=== PATIENT | male | born 1995 | race African-American/Black ===

== ENCOUNTER 2018-02-17 17:45 | Inpatient (IN) | payer SELFPAY ==
[~2018-02-17] VITALS: Ht 180.3 cm; Wt 76.4 kg
[2018-02-17 11:00] VITALS: BP 112/67
--- NOTE | 2018-02-17 17:50 | NUR ---
BIB FRIEND C/O L EYE SWELLING AND PURULENT DISCHARGE X 2 DAYS. SENT FROM URGENT CARE, DENIES TRAUMA. A/OX 4, BREATHING EVEN AND UNLABORED. NO SOB, NAD, VITALS STABLE. SAFETY AND COMFORT MEASURES IN PLACE. AWAITING MD ORDERS.
[2018-02-17] MEDS ORDERED: TETRACAINE HCL/PF 0.5% UD 2 ML BOTTLE ONE (18:11)
[2018-02-17] MEDS ORDERED: FLUORESCEIN SODIUM OPHTH 1 EA STRIP ONE (18:11)
--- NOTE | 2018-02-17 18:25 | NUR ---
NEW IV STARTED ON RFA, 18G. BLOOD DRAWN AND SENT TO LAB.
[2018-02-17] MEDS ORDERED: TONO PEN in ED SUPPLY ONICELL 1 EA MC ONE (18:30)
[2018-02-17] MEDS ORDERED: IV NS 0.9% 1,000 ML BAG IV ONE (18:30)
[2018-02-17] MEDS ORDERED: ONDANSETRON HCL/PF 4 MG/2 ML VIAL IVP ONE (18:30)
[2018-02-17] MEDS ORDERED: CEFTRIAXONE 1 G VIAL IM ONE (18:30)
[2018-02-17] MEDS ORDERED: MORPHINE SULFATE INJ 2 MG/ML DISP.SYRIN IV ONE (18:30)
[2018-02-17] MEDS ORDERED: FLUORESCEIN SODIUM OPHTH 1 EA STRIP OP ONE (18:30)
[2018-02-17] MEDS ORDERED: TETRACAINE HCL/PF 0.5% UD 2 ML BOTTLE LEFTEYE ONE (18:30)
[2018-02-17 18:31] LABS: BASOPHILS % (AUTO) 0.2 % (0.0-2.0); EOSINOPHILS % (AUTO) 5.4 % (0.0-6.0); HEMATOCRIT 38 % (39-51); HEMOGLOBIN 12.8 g/dL (13.5-17.5); LYMPHOCYTES # (AUTO) 0.9 /CMM (0.8-4.8); LYMPHOCYTES % (AUTO) 13.6 % (20.0-44.0); MEAN CORPUSCULAR HEMOGLOBIN 27 PG (26.0-33.0); MEAN CORPUSCULAR HGB CONC 33 g/dl (31.0-36.0); MEAN CORPUSCULAR VOLUME 81 fL (80-96); MONOCYTES # (AUTO) 1.1 /CMM (0.1-1.30); MONOCYTES % (AUTO) 16.6 % (2.0-12.0); NEUTROPHILS # (AUTO) 4.2 /CMM (1.8-8.9); NEUTROPHILS % (AUTO) 64.2 % (43.0-81.0); PLATELET COUNT (AUTO) 381 /CMM (150-450); RDW COEFFICIENT OF VARIATION 12.5 (11.5-15.0); RED BLOOD CELL COUNT(AUTO) 4.75 MIL/uL (4.5-6.0); WHITE BLOOD COUNT (AUTO) 6.6 K/uL (4.3-11.0)
[2018-02-17] MEDS ORDERED: ONDANSETRON HCL/PF 4 MG/2 ML VIAL ONE (18:31)
[2018-02-17] MEDS ORDERED: MORPHINE SULFATE INJ 4 MG/ML DISP.SYRIN ONE (18:31)
--- NOTE | 2018-02-17 18:40 | NUR ---
AT BEDSIDE FOR EVAL.
[2018-02-17 18:45] LABS: ALBUMIN 3.3 g/dL (3.4-5.0); BILIRUBIN,DIRECT 0.1 mg/dL (0.0-0.2); BILIRUBIN,TOTAL 0.3 mg/dL (0.2-1.0); CALCIUM, SERUM 8.9 mg/dL (8.5-10.1); CREATININE 0.9 mg/dL (0.6-1.3); TOTAL PROTEIN, SERUM 8.4 g/dL (6.4-8.2)
[2018-02-17 18:48] LABS: POTASSIUM 3.1 mmol/L (3.5-5.1)
[2018-02-17] MEDS ORDERED: AZITHROMYCIN 250 MG TABLET PO ONE (19:00)
[2018-02-17] MEDS ORDERED: CEFTRIAXONE 1GM BAG (ER ONLY) 1 GM/50 ML PIGGYBACK IV ONE ×2 (19:00)
[2018-02-17] MEDS ORDERED: CEFTRIAXONE 2 G in IV D5W 100 ML IV ONE (19:00)
[2018-02-17] MEDS ORDERED: VANCOMYCIN 1 GM in IV D5W 250 ML IV ONE (19:00)
--- NOTE | 2018-02-17 19:05 | NUR ---
REPORT GIVEN TO WALT TOWNSEND FOR NE.
[2018-02-17] MEDS ORDERED: AZITHROMYCIN 250 MG TABLET ONE (19:17)
[2018-02-17] MEDS ORDERED: IV NS 0.9% 250 ML IV ONE (19:25)
[2018-02-17] MEDS ORDERED: CT SWABBABLE VALVE TRANS SET 1 EA INFUS.SET MC ONE (19:25)
[2018-02-17] MEDS ORDERED: IOHEXOL-300 100 ML VIAL IV ONE (19:25)
--- NOTE | 2018-02-17 19:26 | NUR ---
PT LAYING SUPINE IN BED STABLE CONDITION. NAD. VSS. STABLE CONDITION. WILL CONTINUE TO MONITOR.
[2018-02-17] MEDS ORDERED: POTASSIUM CHLORIDE 20 MEQ TAB.PRT.SR PO ONE ×2 (19:50→20:00)
--- NOTE | 2018-02-17 19:52 | NUR ---
PT BROUGHT BY RADIOLOGY FOR CT
--- NOTE | 2018-02-17 20:52 | NUR ---
URINE COLLECTED. CALLED LAB FOR DIRECTOR OF RESTAURANT
[2018-02-17] MEDS ORDERED: MOXIFLOXACIN OPTH 3 ML BOTTLE LEFTEYE SCH (21:30)
[2018-02-17] MEDS ORDERED: TOBRAMYCIN/DEXAMETH OPHTH DORPS 2.5 ML BOTTLE LEFTEYE SCH (21:30)
[2018-02-17] MEDS ORDERED: TOBRAMYCIN/DEXAMETH OPHTH DORPS 2.5 ML BOTTLE ONE (21:57)
--- NOTE | 2018-02-17 22:12 | NUR ---
PT IS ASSIGNED TO MED SURG RM#: [id number], DX: PRESEPTAL CELLULITIS, AND ACCEPTING MD: DR WRIGHT
[2018-02-17] MEDS ORDERED: HYDROCODONE/APAP 5/325MG 1 EACH TABLET PO PRN (22:30)
[2018-02-17] MEDS ORDERED: ACETAMINOPHEN 325 MG TABLET PO PRN (22:30)
[2018-02-17] MEDS ORDERED: ONDANSETRON HCL/PF 4 MG/2 ML VIAL IVP PRN (22:30)
--- NOTE | 2018-02-17 22:30 | NUR ---
REPORT GIVEN TO DELBERT TOWNSEND FOR NE
--- NOTE | 2018-02-17 23:00 | NUR ---
MS SENIOR PROCESS ENGINEER NOTES Patient came to unit via josep, friend at bedside. Patient alert, oriented x 4. Breathing even and unlabored. Not in any distress. IV site on Right AC g#18, intact and patent. No signs of swelling or infiltration. Swelling on left eye noted, with purulent discharge. Cleansed with NS, patted dry, covered with gauze and reinforced with paper tape. As per patient, he has that for 2 days. Picture taken and placed in chart. Body assessment done, no skin issues. According to patient, he takes Genvoya medication at home. Dr. Tucker informed. Oriented to call patrick. Safety measures in place. Call patrick within easy reach. Bed in low, locked position. Will monitor accordingly
--- NOTE | 2018-02-17 23:15 | NUR ---
PT TRANSPORTED WITH STABLE CONDITION. NAD. ARMENTA.
[2018-02-17] MEDS ORDERED: PIPERACILLIN /TAZOBACTAM 3.375 G VIAL IV ONE (23:31)
[2018-02-17] MEDS: PIPERACILLIN /TAZOBACTAM 3.375 G in IV D5W 50 ML IV SCH (23:47)
[2018-02-18] MEDS ORDERED: ELVI1TAB3 PO (00:18)
[2018-02-18] MEDS ORDERED: IV PREMIX 0.45% NS + KCL 1,000 ML IV ONE (00:29)
[2018-02-18] MEDS ORDERED: PIPERACILLIN /TAZOBACTAM 3.375 G VIAL IV ONE (05:34)
[2018-02-18] MEDS: PIPERACILLIN /TAZOBACTAM 3.375 G in IV D5W 50 ML IV SCH ×4 (05:45→23:51)
--- NOTE | 2018-02-18 06:35 | NUR ---
RN CLOSING NOTES Patient still sleeping in bed, easily arousable. Not in any distress. Peripheral IV of Potassium Chloride in 1/2 NS infusing at 80mL/hr. Patient remains stable. Safety measures in place. All needs attended to. All due medications given as ordered. Will endorse NE to oncoming RN.
[2018-02-18] MEDS ORDERED: FEE PK DOSING 1 MIN EA MC ONE (07:59)
[2018-02-18 08:00] VITALS: BP 116/75
--- NOTE | 2018-02-18 08:30 | NUR ---
RN OPENING NOTES RECEIVED PT. PT IS STABLE AND RESTING IN BED. NO S/S OF RESP DISTRESS/SOB. C/O MILD PAIN AT LEFT EYE 3/10, TOLERABLE. IPER PHARMACY REQUEST, OPTHALMIC MEDICATIONS X 2 TO BE CLARIFIED BY MD AND RE ORDERED. SAFETY MEASURES IN PLACE, CALL LIGHT WITHIN REACH. WILL CONTINUE TO MONITOR.
[2018-02-18] MEDS: VANCOMYCIN 1.25 GM in IV D5W 500 ML IV SCH ×2 (08:59→15:35)
[2018-02-18] MEDS: TOBRAMYCIN/DEXAMETH OPHTH DORPS 2.5 ML BOTTLE LEFTEYE SCH ×3 (09:30→17:59)
[2018-02-18] MEDS ORDERED: CIPROFLOXACIN HCL 0.3% 5 ML BOTTLE LEFTEYE SCH (10:00)
[2018-02-18 10:55] VITALS: BP 116/75
[2018-02-18] MEDS ORDERED: CIPROFLOXACIN HCL 0.3% 5 ML BOTTLE OP ONE (11:37)
[2018-02-18] MEDS: [UNRECOGNIZED DRUG - OTHER] LEFTEYE SCH ×6 (11:55→22:07)
[2018-02-18 15:48] VITALS: BP 119/69
--- NOTE | 2018-02-18 18:49 | NUR ---
RN CLOSING NOTE PT IN BED SLEEPING. NO S/S OF RESP DISTRESS OR SOB. NO C/O PAIN. PT HAS RECEIVED FREQUENT OPTHALMIC ABX DROPS THROUGHOUT THE DAY. IV ABX (VANCO/ZOSYN) RAN PER ORDER. SAFETY MEASURES IN PLACE, CALL LIGHT WITHIN REACH. WILL ENDORSE TO PACKAGE CLERK FOR NE.
[2018-02-18 20:11] VITALS: BP 111/56
[2018-02-19] MEDS: [UNRECOGNIZED DRUG - OTHER] LEFTEYE SCH ×2 (00:02→02:29)
[2018-02-19] MEDS: TOBRAMYCIN/DEXAMETH OPHTH DORPS 2.5 ML BOTTLE LEFTEYE SCH ×4 (00:04→18:24)
[2018-02-19] MEDS: VANCOMYCIN 1.25 GM in IV D5W 500 ML IV SCH ×3 (00:45→15:57)
[2018-02-19] MEDS: PIPERACILLIN /TAZOBACTAM 3.375 G in IV D5W 50 ML IV SCH ×4 (05:55→23:45)
[2018-02-19 07:35] LABS: CALCIUM, SERUM 8.5 mg/dL (8.5-10.1); CREATININE 1.1 mg/dL (0.6-1.3); POTASSIUM 4.1 mmol/L (3.5-5.1)
--- NOTE | 2018-02-19 07:51 | NUR ---
RN OPENING NOTES RECEIVED PT. IN BED, A&OX4. BREATHING UNLABORED ON ROOM AIR. NO S/S OF ACUTE PAIN. PT. DENIES PAIN. IV FLUIDS RUNNING AT 80 ML/HR. BED IS IN LOWEST, AND LOCKED POSITION. 2 SIDE RAILS UP, AND INSTRUCTED PT. TO USE CALL LIGHT FOR ASSISTANCE. ALL NEEDS MET. WILL CONTINUE TO ASSESS AND MONITOR.
[2018-02-19 08:00] VITALS: BP 110/57
[2018-02-19] MEDS: GATIFLOXACIN 0.5% LEFTEYE SCH ×4 (09:09→22:00)
--- NOTE | 2018-02-19 11:26 | NUR ---
ASKED PT. ABOUT HIS HOME MEDICATION GENVOYA. PT. SAID HE DOES NOT HAVE IT WITH HIM, BUT CAN ASK SOMEONE TO BRING IT IN FOR HIM.
[2018-02-19 16:00] VITALS: BP 101/68
--- NOTE | 2018-02-19 19:17 | NUR ---
RN CLOSING NOTES PT. IN BED, A&OX4, SLEEPING. BREATHING UNLABORED ON ROOM AIR. NO S/S OF ACUTE PAIN. PT. DENIES PAIN. IV ANTIBIOTICS RUNNING. BED IS IN LOWEST, AND LOCKED POSITION. 2 SIDE RAILS UP, AND INSTRUCTED PT. TO USE CALL LIGHT FOR ASSISTANCE. ALL NEEDS MET. WILL ENDORSE REPORT.
--- NOTE | 2018-02-19 19:20 | NUR ---
MS/RN NOTES RECEIVED PT. LYING IN BED. PT. IS AWAKE, ALERT AND ORIENTED X4. BREATHING EVEN AND UNLABORED ON ROOM AIR. NO SOB, RESPIRATORY DISTRESS OR COMPLAINTS OF PAIN NOTED AT THIS TIME. PT. WITH RIGHT HAND 22 GAUGE PERIPHERAL IV PRESENT, PATENT AND INTACT ADMINISTERING TO PT. 1/2 NS WITH 20 MEQ KCL @ 80ML/HR. BED LOCKED AND IN LOWEST POSITION, CALL LIGHT WITHIN REACH, WILL CONTINUE TO MONITOR.
[2018-02-19 20:00] VITALS: BP 127/74
[2018-02-20] MEDS: TOBRAMYCIN/DEXAMETH OPHTH DORPS 2.5 ML BOTTLE LEFTEYE SCH ×3 (00:20→12:14)
[2018-02-20] MEDS: VANCOMYCIN 1.25 GM in IV D5W 500 ML IV SCH ×2 (00:55→09:09)
[2018-02-20] MEDS: PIPERACILLIN /TAZOBACTAM 3.375 G in IV D5W 50 ML IV SCH ×2 (05:29→12:17)
--- NOTE | 2018-02-20 06:37 | NUR ---
MS/RN NOTES PT. IS LYING IN BED RESTING. BREATHING EVEN AND UNLABORED ON ROOM AIR. NO SOB, RESPIRATORY DISTRESS OR COMPLAINTS OF PAIN NOTED AT THIS TIME AND THROUGHOUT SHIFT. PT. WITH RIGHT HAND 22 GAUGE PERIPHERAL IV PRESENT, PATENT AND INTACT ADMINISTERING TO PT. 1/2 NS WITH 20 MEQ KCL @ 80ML/HR. ALL PT. NEEDS MET. BED LOCKED AND IN LOWEST POSITION, CALL LIGHT WITHIN REACH, WILL ENDORSE TO DAYSHIFT NURSE FOR CONTINUITY OF CARE.
[2018-02-20 06:51] LABS: CALCIUM, SERUM 8.7 mg/dL (8.5-10.1); CREATININE 0.9 mg/dL (0.6-1.3); POTASSIUM 4.3 mmol/L (3.5-5.1)
[2018-02-20] MEDS ORDERED: CIPROFLOXACIN HCL 0.3% 5 ML BOTTLE LEFTEYE SCH (07:35)
[2018-02-20 08:00] VITALS: BP 111/67
--- NOTE | 2018-02-20 08:00 | NUR ---
RN NOTES RECEIVED PATIENT IN THE BED A/O X3/4. ATIENT STABLE NOO ACUTE RESPIRATORY DISTRESS, V/S STABLE. REDNESS ON LEFT EYES. SCHEDULED MEDICATION ADMINISTERED. PATIENT REFUSED PAIN AT THIS TIME. INFUSING 1/2 NS AT 20MEQ KCL AT 80 ML/HE INTACT ON RIGHT HAND. PATIENT USING BATHROOM. SAFETY PRECAUTION MAINTAINED ALL THE TIME. NEEDS ATTENDED AND ANTICIPATED. CALL LIGHT WITHIN TO REACH. CONTINUED MONITORING.
[2018-02-20] MEDS ORDERED: GENVOYA PO SCH (09:00)
[2018-02-20] MEDS: GATIFLOXACIN 0.5% LEFTEYE SCH ×2 (09:13→12:17)
--- NOTE | 2018-02-20 10:00 | NUR ---
RN NOTES PATIENT STABLE RESTING IN THE BED. NO ACUTE RESPIRATORY DISTRESS. PATIENT GOING TO D/C HOME.
[2018-02-20] MEDS ORDERED: TOBR2.5D LEFTEYE (11:09)
[2018-02-20] MEDS ORDERED: SULF1TAB48 PO (11:09)
[2018-02-20] MEDS ORDERED: GATI2.5D LEFTEYE (13:26)
--- NOTE | 2018-02-20 15:00 | NUR ---
DISCHARGE NOTES PATIENT STABLE GOING TO D/C HOME. PATIENT MED COMPLIANT. V/S STALE, NO COMPLAINING OF PAIN. MED RECONCILIATION AND DISCHARGE ORDER REVIEWED AND EXPLAINED TO PATIENT . PATIENT VERBALIZED UNDERSTANDING. BELONGING WITH THE PATIENT. PATIENT WILL FOLLOW PRIMARY INDUSTRIAL GAS FITTER, TAKE MEDICATION PRESCRIBED. PRESCRIPTION HANDED TO THE PATIENT. ESCORTED PATIENT TO THE LOBBY FOR SAFETY. PATIENT GROUND WATER CONTRACTOR BY FRIEND NAME SRINATH PHONE #[phone].
== END 2018-02-20 15:07 | disposition home or self-care (01) | DRG 603 ==
LOC: ER 17:46 → MED 22:37
PROVIDERS: ADMIT Internal Medicine; ATTEND Internal Medicine
DX: L03.213 Periorbital cellulitis (principal); H10.9 Unspecified conjunctivitis; E87.6 Hypokalemia; H10.89 Other conjunctivitis; H01.006 Unspecified blepharitis left eye, unspecified eyelid; D64.9 Anemia, unspecified
CPT/HCPCS: 36415; 70481-TC; 80048-TC; 80076-TC; 80202-TC; 85025-TC; 87040-TC; 87070-TC; 87081-TC; 87186-TC; 87491; 87591; A4606; A6402; J0696; J2270; J2405; J2543; J3370; J3480; J3490; J7030; J7050; J7060; Q9967; Z7610

== ENCOUNTER 2018-11-05 08:58 | Inpatient (IN) | payer BC, MEDICAID ==
[~2018-11-05] VITALS: Ht 180.3 cm; Wt 76.2 kg
[~2018-11-05 08:58] MED LIST: ELVI1TAB3 PO; GATI2.5D LEFTEYE; SULF1TAB48 PO; TOBR2.5D LEFTEYE
--- NOTE | 2018-11-05 09:17 | NUR ---
BIBSELF FROM HOME. AAOX4. NO SOB. AMBULATORY. C/O HEADACHE ON THE FRONTAL AREA, NON PRODUCTIVE COUGH AND CONGESTION SINCE YESTERDAY. DENIES CP. -N/V/D. AFEBRILE. PT REPORTED TAKING IBUPROPHEN AT 4:30AM. TO ER BED 2. AWAITING MD FOR EVAL AND ORDERS.
--- NOTE | 2018-11-05 09:30 | NUR ---
PT REPORTS THE HE IS HIV POSITIVE
[2018-11-05] MEDS ORDERED: CEFTRIAXONE 1GM BAG (ER ONLY) 50 ML IV ONE ×2 (09:48→10:00)
--- NOTE | 2018-11-05 09:50 | NUR ---
IV LINE OBTAINED ON L AC 18G. BLOOD DRAWN GIVEN TO OXYGEN THERAPY TEACHER AT BEDSIDE. EKG BEING DONE.
[2018-11-05] MEDS ORDERED: VANCOMYCIN 1 GM in IV D5W 250 ML IV ONE (10:00)
[2018-11-05] MEDS ORDERED: IV NS 0.9% 1,000 ML BAG IV ONE (10:00)
--- NOTE | 2018-11-05 10:00 | NUR ---
PT BEING WHEELED TO CT ON [facility]. MASK IS PLACED ON PT FOR TRANSPORT
[2018-11-05 10:05] LABS: BASOPHILS % (AUTO) 0.1 % (0.0-2.0); HEMATOCRIT 44 % (39-51); HEMOGLOBIN 14.9 g/dL (13.5-17.5); LYMPHOCYTES % (AUTO) 9.4 % (20.0-44.0); MEAN CORPUSCULAR HGB CONC 34 g/dl (31.0-36.0); MEAN CORPUSCULAR VOLUME 82 fL (80-96); MONOCYTES % (AUTO) 9.9 % (2.0-12.0); NEUTROPHILS # (AUTO) 7.4 /CMM (1.8-8.9); NEUTROPHILS % (AUTO) 71.6 % (43.0-81.0); PLATELET COUNT (AUTO) 282 /CMM (150-450); RED BLOOD CELL COUNT(AUTO) 5.39 MIL/uL (4.5-6.0); WHITE BLOOD COUNT (AUTO) 10.3 K/uL (4.3-11.0)
[2018-11-05 10:08] LABS: CALCIUM, SERUM 8.9 mg/dL (8.5-10.1); CARBON DIOXIDE 28 mmol/L (21-32); CHLORIDE 100 mmol/L (98-107); CREATININE 0.8 mg/dL (0.6-1.3); GLUCOSE 116 mg/dL (74-106); POTASSIUM 3.7 mmol/L (3.5-5.1); SODIUM SERUM 134 mmol/L (136-145); UREA NITROGEN, BLOOD 7 mg/dL (7-18)
[2018-11-05 10:14] LABS: ALANINE AMINOTRANSFERASE 47 U/L (12-78); ALBUMIN 3.5 g/dL (3.4-5.0); ALKALINE PHOSPHATASE 79 U/L (46-116); ASPARTATE AMINOTRANSFERASE 28 U/L (15-37); BILIRUBIN,DIRECT 0.1 mg/dL (0.0-0.2); BILIRUBIN,TOTAL 0.5 mg/dL (0.2-1.0); TOTAL PROTEIN, SERUM 9.2 g/dL (6.4-8.2)
--- NOTE | 2018-11-05 10:20 | NUR ---
CONSENT FOR LP OBTAINED FROM PT.
--- NOTE | 2018-11-05 10:26 | NUR ---
PT NOTED DESATTING WHILE HE WAS POSITIONED ON SIDE LYING FOR LP. PT NOTED AT 85%. PLACED ON O2 VIA NC @ 4LPM. PT SATTING AT 97% MD MADE AWARE.
[2018-11-05] MEDS ORDERED: LIDOCAINE HCL/MPF 1% 30 ML VIAL IJ ONE (10:45)
--- NOTE | 2018-11-05 10:50 | NUR ---
AT BEDSIDE FOR LP
--- NOTE | 2018-11-05 10:59 | NUR ---
[facility] SPECIMEN HAND DELIVERED TO MAIN LAB.
[2018-11-05] MEDS ORDERED: AZITHROMYCIN 250 MG TABLET PO ONE (11:00)
[2018-11-05] MEDS ORDERED: AZITHROMYCIN 250 MG TABLET ONE (11:02)
[2018-11-05 11:32] LABS: CSF GLUCOSE 72 mg/dL (40-70); CSF PROTEIN 26.9 mg/dL (15-45)
--- NOTE | 2018-11-05 12:29 | NUR ---
RT CALLED FOR TX
[2018-11-05] MEDS ORDERED: ALBUTEROL FS 2.5 MG/3 ML VIAL.NEB NEB ONE ×2 (12:30→14:00)
[2018-11-05] MEDS ORDERED: ALBUTEROL FS 2.5 MG/3 ML VIAL.NEB ONE ×2 (12:33→14:02)
--- NOTE | 2018-11-05 12:40 | NUR ---
CALLED NURSING SUP FOR TELE BED
--- NOTE | 2018-11-05 12:53 | NUR ---
PT IN BED SLEEPING.
--- NOTE | 2018-11-05 13:31 | NUR ---
BED 105 TELE
--- NOTE | 2018-11-05 13:59 | NUR ---
CALLED UNIT FOR REPORT, NO ANSWER. WILL CALL AGAIN
--- NOTE | 2018-11-05 14:09 | NUR ---
REPORT GIVEN TO KRISTIAN FLYNN FOR NE.
[2018-11-05 15:00] VITALS: BP 122/43
[2018-11-05] MEDS ORDERED: ONDANSETRON HCL/PF 4 MG/2 ML VIAL IVP PRN (15:00)
[2018-11-05] MEDS ORDERED: MAG HYDROX/AL HYDROX/SIMETH 30 ML UDC PO PRN (15:00)
[2018-11-05] MEDS ORDERED: IPRATROPIUM NEB FS 0.5 MG/2.5 ML AMPUL.NEB NEB PRN (15:00)
[2018-11-05] MEDS ORDERED: ZOLPIDEM TARTRATE 5 MG TABLET PO PRN (15:00)
[2018-11-05] MEDS ORDERED: ACETAMINOPHEN 325 MG TABLET PO PRN (15:00)
[2018-11-05] MEDS ORDERED: MAGNESIUM HYDROXIDE 30 ML UDC PO PRN (15:00)
[2018-11-05] MEDS ORDERED: HYDROCODONE/APAP 5/325MG 1 EACH TABLET PO PRN (15:00)
[2018-11-05] MEDS ORDERED: ALBUTEROL FS 2.5 MG/3 ML VIAL.NEB NEB PRN (15:00)
[2018-11-05 16:00] VITALS: BP 122/43
[2018-11-05] MEDS: IV NS 0.9% 1,000 ML IV PRN (16:12)
[2018-11-05 20:00] VITALS: BP 129/68
--- NOTE | 2018-11-05 20:00 | NUR ---
RN INITIAL NOTES RECEIVED PT RESTING IN BED. PT IS A&OX4. NO SOB NOTED. PT IS AMBULATORY. PT C/O HEADACHE ON THE FRONTAL AREA, NON PRODUCTIVE COUGH AND CONGESTION. ON TELE SR/ST, HR 96/110. PT HAS A #18G IN L AC. ALL SAFETY PRECAUTIONS TAKEN. BED IN LOWEST LOCKED POSITION.CALL LIGHT WITH IN REACH. WILL CONT TO MONITOR.
--- NOTE | 2018-11-05 20:30 | NUR ---
RN NOTES ENDORSED PER DAY SHIFT KRISTIAN FLYNN, PT TO HAVE FRIEND BRING HOME MEDS:GENVOYA FROM HOME TO [facility].
[2018-11-06] VITALS: BP_SYST 129; BP_SYST 130; BP_DIAS 68
[2018-11-06 03:08] LABS: *BASOS 0 % (Not Estab.); *EOS 11 % (Not Estab.); *EOS, ABSOLUTE 0.9 x10E3/uL (0.0-0.4); *HCT 42.5 % (37.5-51.0); *IMMATURE GRANULOCYTES 0 % (Not Estab.); *LYMPHOCYTES 19 % (Not Estab.); *LYMPHS, ABSOLUTE 1.4 x10E3/uL (0.7-3.1); *MCH 26.5 pg (26.6-33.0); *MCHC 32.9 g/dL (31.5-35.7); *MCV 81 fL (79-97); *MONOCYTES 13 % (Not Estab.); *NEUTROPHILS 57 % (Not Estab.); *NEUTROPHILS, ABSOLUTE 4.3 x10E3/uL (1.4-7.0); *PLT 266 x10E3/uL (150-450); *RBC 5.28 x10E6/uL (4.14-5.80); *RDW 15.2 % (12.3-15.4)
[2018-11-06 04:00] VITALS: BP 110/85
--- NOTE | 2018-11-06 06:29 | NUR ---
RN CLOSING NOTES NO CHANGE IN PTS CONDITION. PT REMAINED STABLE OVER NIGHT. WILL ENDORSE TO AM RN.
[2018-11-06 07:06] LABS: BASOPHILS % (AUTO) 0.1 % (0.0-2.0); EOSINOPHILS % (AUTO) 17.8 % (0.0-6.0); HEMATOCRIT 42 % (39-51); HEMOGLOBIN 14.2 g/dL (13.5-17.5); LYMPHOCYTES # (AUTO) 1.1 /CMM (0.8-4.8); LYMPHOCYTES % (AUTO) 20.2 % (20.0-44.0); MEAN CORPUSCULAR HGB CONC 34 g/dl (31.0-36.0); MEAN CORPUSCULAR VOLUME 81 fL (80-96); MONOCYTES # (AUTO) 0.7 /CMM (0.1-1.30); MONOCYTES % (AUTO) 12.7 % (2.0-12.0); NEUTROPHILS # (AUTO) 2.6 /CMM (1.8-8.9); NEUTROPHILS % (AUTO) 49.2 % (43.0-81.0); PLATELET COUNT (AUTO) 280 /CMM (150-450); RED BLOOD CELL COUNT(AUTO) 5.23 MIL/uL (4.5-6.0); WHITE BLOOD COUNT (AUTO) 5.2 K/uL (4.3-11.0)
[2018-11-06 07:27] LABS: CALCIUM, SERUM 8.3 mg/dL (8.5-10.1); CREATININE 0.7 mg/dL (0.6-1.3); MAGNESIUM 1.9 mg/dL (1.8-2.4); PHOSPHORUS 3.9 mg/dL (2.5-4.9); POTASSIUM 3.9 mmol/L (3.5-5.1)
--- NOTE | 2018-11-06 07:27 | NUR ---
Nurse Notes: report from the night nurse Lashonda Seymour RN, patient is resting in bed, IV is infusing at 75 cc per hour. In no respiratory distress. voiding freely.
[2018-11-06] MEDS: IV NS 0.9% 1,000 ML IV PRN (07:32)
[2018-11-06 08:00] VITALS: BP 135/71
[2018-11-06 08:42] LABS: ABG BASE EXCESS 0.9 mmol/L; ABG OXYGEN SATURATION 95.1 % (92.0-98.5); ABG PCO2 44.2 mmHg (35.0-45.0); ABG PH 7.391 (7.350-7.450); ABG PO2 79.7 mmHg (75.0-100.0); AaDO2 17.1 mmHg; COHb 0.8 % (0.5-1.5); MetHb 0.4 % (0.0-1.5); SITE, ABG Right Radial; VENT MODE, BG room air
[2018-11-06 10:10] LABS: *% CD 4 POS. LYMPH 23.6 % (30.8-58.5); *% CD 8 POS. LYMPH 39.5 % (12.0-35.5); *ABSOLUTE CD 4 HELPER 330 /uL (359-1519); *ABSOLUTE CD 8 SUPPRESSOR 553 /uL (109-897)
[2018-11-06 12:00] VITALS: BP 137/76
--- NOTE | 2018-11-06 12:30 | NUR ---
Nurse Notes: Jackson Aguilar NP was notified, ABG results checked by JORDAN Paz. Patient stated last Genoya was taken last week . No one can get his HIV medication from home. medication is a combination. Patient stated has HIV but not aids.
[2018-11-06] MEDS: TENOFOVIR DISOPROXIL FUMARATE 300 MG TABLET PO SCH (14:04)
[2018-11-06] MEDS: EMTRICITABINE 200 MG CAPSULE PO SCH (14:05)
[2018-11-06] MEDS: RALTEGRAVIR POTASSIUM 400 MG TABLET PO SCH ×2 (14:05→22:01)
--- NOTE | 2018-11-06 14:05 | NUR ---
Nurse Notes: HIV medications given in three medications, Isentress, Emtriva and Viread. patient stated has no one to get his medications, His HIV medication Genvoya is filled at [facility] pharmacy across the [address], and is closed this weekend.
[2018-11-06 16:00] VITALS: BP_SYST 127; BP_SYST 137; BP_DIAS 68; BP_DIAS 76
--- NOTE | 2018-11-06 19:39 | NUR ---
Nurse Notes: report given to Night nurse Lashonda Seymour RN, remains on IV fluids at 75 cc per hour. No request for any pain medications. remains on secured entrance monitor. sinus rhythm.
[2018-11-06 20:00] VITALS: BP 127/89
--- NOTE | 2018-11-06 20:00 | NUR ---
RN INITIAL NOTES RECEIVED PT RESTING IN BED. PT IS A&OX4. NO SOB NOTED. PT IS AMBULATORY. ON TELE SR, HR 92. PT HAS A #18G IN L AC with 0.9 NS @75MLS/HR. ALL SAFETY PRECAUTIONS TAKEN. BED IN LOWEST LOCKED POSITION.CALL LIGHT WITH IN REACH. WILL CONT TO MONITOR.
[2018-11-07] VITALS (7 sets, daily range): BP systolic 121–144; BP diastolic 69–86
--- NOTE | 2018-11-07 07:25 | NUR ---
RN CLOSING NOTES NO CHANGE IN PTS CONDITION. PT REMAINED STABLE OVER NIGHT. WILL ENDORSE TO AM RN.
[2018-11-07] MEDS: RALTEGRAVIR POTASSIUM 400 MG TABLET PO SCH ×2 (09:39→17:15)
[2018-11-07] MEDS: TENOFOVIR DISOPROXIL FUMARATE 300 MG TABLET PO SCH (09:39)
[2018-11-07] MEDS: EMTRICITABINE 200 MG CAPSULE PO SCH (09:39)
[2018-11-07] MEDS: HYDROCODONE/APAP 10/325MG 1 EA TABLET PO PRN ×2 (09:40→14:32)
--- NOTE | 2018-11-07 20:00 | NUR ---
RN NOTES RECEIVED PATIENT READY FOR DISCHARGE, DISCHARGE PACKET AND PLANNING DISCUSSED WITH PATIENT, PATIENT VERBALIZES UNDERSTANDING, ALL NEEDS ATTENDED, AWAITING FOR ASSISTANT DIRECTOR OF FINANCIAL AID, OBTAINED TAXI VOUCHER FROM RN CERTIFIED PROFESSIONAL CODER.
--- NOTE | 2018-11-07 20:10 | NUR ---
RN NOTES PATIENT REFUSED TAXI VOUCHER, STATES THAT A ROOMMATE/FRIEND WILL PICK HIM UP. RN SPINDLE CARVER AND CHARGE NURSE MADE AWARE.
--- NOTE | 2018-11-07 20:38 | NUR ---
RN NOTES LEFT THE UNIT AT THIS TIME 2037; PICKED UP BY A ROOMMATE/FRIEND.
== END 2018-11-07 20:35 | disposition home or self-care (01) | DRG 893 ==
LOC: ER 08:59 → TELE1 14:35
PROVIDERS: ADMIT Nurse Practitioner Acute Care; ATTEND Nurse Practitioner Acute Care
DX: J15.9 Unspecified bacterial pneumonia (principal); B20 Human immunodeficiency virus [HIV] disease; E87.1 Hypo-osmolality and hyponatremia; J98.11 Atelectasis; F12.90 Cannabis use, unspecified, uncomplicated; Z87.01 Personal history of pneumonia (recurrent); G43.909 Migraine, unspecified, not intractable, without status migrainosus; Z91.14 Patient's other noncompliance with medication regimen; J20.9 Acute bronchitis, unspecified
CPT/HCPCS: 36415; 36600; 70220-TC; 70450-TC; 71045-TC; 80048-TC; 80076-TC; 82803-TC; 83605-TC; 83615-TC; 83735-TC; 84100-TC; 84484-TC; 85025-TC; 85730-TC; 86360; 87040-TC; 87070-TC; 87081-TC; 87400; 89051-TC; G0378; J0696; J3370; J3490; J7030; J7060

== ENCOUNTER 2022-07-02 06:55 | Emergency (ER) | payer MEDICAID ==
[~2022-07-02] VITALS: Ht 180.3 cm; Wt 88.9 kg
[~2022-07-02 06:55] MED LIST changes: -GATI2.5D LEFTEYE; -SULF1TAB48 PO; -TOBR2.5D LEFTEYE
[2022-07-02 07:06] VITALS: BP 160/11
--- NOTE | 2022-07-02 07:12 | NUR ---
C/O LOWER LIP SWELLING X YESTERDAY. NO SOB, NO HIVES. PT AMBULATED TO BED WITH STEADY GAIT. AAOX4. BREATHING EVEN AND UNLABORED. AWAITING MD ORDERS.
--- NOTE | 2022-07-02 07:14 | NUR ---
PA AT BEDSIDE.
[2022-07-02] MEDS ORDERED: diphenhydrAMINE HCL 25 MG CAPSULE PO ONE (07:30)
[2022-07-02] MEDS ORDERED: FAMOTIDINE (20 MG) 20 MG TABLET PO ONE (07:30)
[2022-07-02] MEDS ORDERED: predniSONE 50 MG TABLET PO ONE (07:30)
[2022-07-02] MEDS ORDERED: PRED50TA PO (07:32)
[2022-07-02] MEDS ORDERED: diphenhydrAMINE HCL 25 MG CAPSULE ONE (07:46)
[2022-07-02] MEDS ORDERED: FAMOTIDINE (20 MG) 20 MG TABLET ONE (07:46)
[2022-07-02] MEDS ORDERED: predniSONE 20 MG TABLET ONE (07:46)
--- NOTE | 2022-07-02 07:49 | NUR ---
RN NOTES administered scheduled medication po x as prescribed. will follow up.
--- NOTE | 2022-07-02 07:58 | NUR ---
rn notes patient discgarge home with mg po at this time. Priscription handed to the patient, patient sign paperwork. educated about medication intake. friend will seed cone picker within 20 mins name Karl.
== END 2022-07-02 08:34 | disposition home or self-care (01) ==
LOC: ER 06:55
DX: K13.0 Diseases of lips (principal); Z91.018 Allergy to other foods
CPT/HCPCS: 99284; Q0163